=== PATIENT | male | born 1950 | race Caucasian/White ===

== ENCOUNTER 2016-08-03 10:36 | Inpatient (IN) | payer OTHER, MEDICAID ==
[~2016-08-03] VITALS: Ht 167.6 cm; Wt 68.0 kg
--- NOTE | 2016-08-03 10:36 | NUR ---
Arrived via [facility] for ALOC since this morning. Patient is symetrically weak and poorly responsive. At baseline he is ambulatory and verbal; now non-verbal and poorly responsive.
--- NOTE | 2016-08-03 10:38 | NUR ---
Dr Winslow at the bedside for evaluation. Currently awaiting new orders.
[2016-08-03] MEDS ORDERED: NACL 0.9% 1,000 ML IV SCH (10:43)
--- NOTE | 2016-08-03 10:45 | NUR ---
Received Pt in bed 1. Pt unable to follow commands and verbalized needs. Pt appears lethargic and sedated. Pt withdraws to painful stimuli.
[2016-08-03 10:46] VITALS: BP 113/60; PULSE 70; RESP 16; TEMP 97.4; O2SAT 99
[2016-08-03 11:31] LABS: BASOPHILS # (AUTO) 0.3 K/uL (0.0-0.2); BASOPHILS % (AUTO) 3.9 % (0.0-2.0); EOSINOPHILS % (AUTO) 0.2 % (0.0-4.0); HEMATOCRIT 41.9 % (36-54); HEMOGLOBIN 13.7 g/dL (14.0-18.0); LYMPHOCYTES # (AUTO) 0.7 K/uL (1.0-5.5); LYMPHOCYTES % (AUTO) 8.1 % (20.5-51.5); MEAN CORPUSCULAR HEMOGLOBIN 32 pg (27-31); MEAN CORPUSCULAR HGB CONC 33 % (32-36); MEAN CORPUSCULAR VOLUME 98 fL (79.0-98.0); MONOCYTES # (AUTO) 0.5 K/uL (0.0-1.0); MONOCYTES % (AUTO) 5.5 % (1.7-9.3); NEUTROPHILS # (AUTO) 7.1 K/uL (1.8-7.7); NEUTROPHILS % (AUTO) 82.3 % (40.0-70.0); PLATELET COUNT (AUTO) 306 K/uL (130-430); RED BLOOD CELL COUNT(AUTO) 4.26 MIL/uL (4.2-6.2); RED CELL DISTRIBUTION WIDTH 13.3 % (9.0-15.0); WHITE BLOOD COUNT (AUTO) 8.6 K/uL (4.8-10.8)
[2016-08-03 11:40] LABS: PROTHROMBIN TIME 10.5 SECS (9.5-12.5)
[2016-08-03 11:42] LABS: CALCIUM 8.6 mg/dL (8.4-11.0); CREATININE 1.17 mg/dL (0.55-1.30); POTASSIUM 4.4 mmol/L (3.5-5.1)
--- NOTE | 2016-08-03 11:44 | NUR ---
TAKEN TO RADIOLOGY VIA [facility]
[2016-08-03 11:48] LABS: ALBUMIN 3.5 g/dL (3.4-4.8); TOTAL BILIRUBIN 0.4 mg/dL (0.0-1.0); TOTAL PROTEIN, SERUM 7.5 g/dL (6.4-8.3)
--- NOTE | 2016-08-03 11:55 | NUR ---
Pt back from CT via [facility].
--- NOTE | 2016-08-03 12:10 | NUR ---
SPOKE WITH PTS CAREGIVER AND WAS GIVEN MED REC, MED RECONCILIATION DONE.
[2016-08-03] MEDS ORDERED: SUCR1TAB78 PO (12:23)
[2016-08-03] MEDS ORDERED: DOCU-144 PO (12:23)
[2016-08-03] MEDS ORDERED: DEXL60CA3 PO (12:23)
[2016-08-03] MEDS ORDERED: MULT-1117 PO (12:23)
[2016-08-03] MEDS ORDERED: SERT50TA PO (12:23)
[2016-08-03] MEDS ORDERED: FLUT16SP16 NS (12:23)
[2016-08-03] MEDS ORDERED: TEMA15CA51 PO (12:23)
[2016-08-03] MEDS ORDERED: THOR25 PO (12:23)
[2016-08-03] MEDS ORDERED: LEVO125T8 PO (12:23)
--- NOTE | 2016-08-03 12:59 | NUR ---
NO CHANGES, VSS NO RESP DISTRESS.
[2016-08-03] MEDS ORDERED: NALOXONE HCL 0.4 MG/ML AMP (NARCAN) IVP ONE (13:00)
[2016-08-03 13:01] LABS: BILIRUBIN,URINE NEGATIVE (NEGATIVE); BLOOD, URINE NEGATIVE (NEGATIVE); CLARITY/URINE CLEAR (CLEAR); COLOR,URINE YELLOW (YELLOW); GLUCOSE,URINE NEGATIVE (NEGATIVE); KETONES,URINE NEGATIVE (NEGATIVE); LEUKOCYTE ESTERASE ,URINE NEGATIVE (NEGATIVE); NITRITE, URINE NEGATIVE (NEGATIVE); PROTEIN URINE NEGATIVE (NEGATIVE); UROBILINOGEN,URINE 0.2 (0.2-1.0)
[2016-08-03 13:29] LABS: BARBITURATE, URINE NEGATIVE (NEG <=200); BENZODIAZEPINE, URINE POSITIVE (NEG <=150); CANNABINOID, URINE NEGATIVE (NEG <=50); COCAINE, URINE NEGATIVE (NEG <=150); METHAMPHETAMINES SCREEN,URINE NEGATIVE (NEG <=500); OPIATE, URINE NEGATIVE (NEG <=100); PHENCYCLIDINE SCREEN,URINE NEGATIVE (NEG <=25); UR TRICYCLIC ANTIDEPRESSANTS NEGATIVE (NEG <=300); URINE AMPHETAMINE NEGATIVE (NEG <=500); URINE METHADONE NEGATIVE (NEG <=200); URINE OXYCODONE SCREEN NEGATIVE (NEG <=100); URINE PROPOXYPHENE SCREEN NEGATIVE (NEG <=300)
[2016-08-03] MEDS ORDERED: KETOROLAC TROMETHAMINE 30 MG VIAL IVP ONE (13:30)
--- NOTE | 2016-08-03 14:00 | NUR ---
NO CHANGES, PT ONLY RESPONDING TO PAINFUL STIMULI
--- NOTE | 2016-08-03 14:34 | NUR ---
Patient will be admitted to care of DR HORVATH. Admitted to TELE unit. Will go to room 105-A. Belongings list completed. Summary report printed. Report given to NURSE.
--- NOTE | 2016-08-03 14:48 | NUR ---
ADMISSION NOTE Received patient from ER via gurney. Patient admitted with diagnosis of ALOC. Patient is awake, alert, oriented X 2. Patient oriented to hospital room, call light, toileting, pain management and safety-teach back done. Patient informed that DOMI will be THE nurse and that their room number is 105A. Personal belongings checked and Belongings List documented. Call light within reach.
--- NOTE | 2016-08-03 15:00 | NUR ---
assessment notes rec patient awake but non verbally responsive at this time. hob elevated and no sob noted. ivl on the l hand intact. no infiltration noted. resp easy and unlabored. no acute distress noted. no skin breakdown noted.
[2016-08-03 15:05] VITALS: BP 122/67; PULSE 63; RESP 12; TEMP 97.6; O2SAT 100
[2016-08-03 16:06] VITALS: BP 122/67; PULSE 62; RESP 16; TEMP 97.6; O2SAT 100
--- NOTE | 2016-08-03 16:21 | NUR ---
NEURO CONSULT Spoke with Sera regarding request for consultation with Dr. Santana ([phone]) for reason: altered mental status.
--- NOTE | 2016-08-03 17:00 | NUR ---
rounds dr ortega came and updated re pt's condition. no sob noted. asleep no acute distress noted.
[2016-08-03] MEDS: D5/0.45 NS 1,000 ML IV SCH (17:13)
--- NOTE | 2016-08-03 18:35 | NUR ---
closing notes with hob elevated, no acute distress noted. bed in low position and side rails up and locked. bed alarm is on.
--- NOTE | 2016-08-03 18:40 | NUR ---
SPEECH/LANGUAGE EVAL Left voicemail with Lizett regarding order by Dr. Sandoval for speech/language evaluation. Awaiting call back.
[2016-08-03 20:31] VITALS: BP 125/71; PULSE 68; RESP 18; TEMP 97.5; O2SAT 96
--- NOTE | 2016-08-03 21:35 | NUR ---
Patient resting this hour non verbal Reposition & turning kept clean and dry as needed / .
[2016-08-04] VITALS (7 sets, daily range): BP systolic 120–146; BP diastolic 64–76; PULSE 56–78; RESP 16–20; TEMP 96.4–98.3; O2SAT 93–100
--- NOTE | 2016-08-04 | NUR ---
Hourly Rounding patient awake on and off HOB kept elevated skin dry warm call henao with patient / .
--- NOTE | 2016-08-04 02:46 | NUR ---
Seizure precautions implemented Sx pads applied , no visual seizure activity noted / .
--- NOTE | 2016-08-04 02:47 | NUR ---
Reposition and Turning on schedule kept clean & dry as needed respirations regular also unlabored / .
--- NOTE | 2016-08-04 02:48 | NUR ---
AM Labs also ABG has been ordered from DR HARSHA IRWIN for this patient / .
--- NOTE | 2016-08-04 04:37 | NUR ---
Hourly Rounding patient resting this hour responsive to light touch chest movement shallow also symmetrical unlabored / .
[2016-08-04] MEDS: D5/0.45 NS 1,000 ML IV SCH (05:03)
--- NOTE | 2016-08-04 06:05 | NUR ---
Phoned paged DR HORVATH , to update patient has been Chris @ times 42 - 59 bpm / .
[2016-08-04 07:43] LABS: PHOSPHORUS 3.7 mg/dL (2.7-4.5)
--- NOTE | 2016-08-04 08:00 | NUR ---
AM NOTE Patient is sitting up in bed, no sign of distress or pain, assessment complete, patient is currently on 2L of o2, reoriented patient to room, placed call henao in hand, sitter is currently at bed side, bed in lowest position, three side rails up, bed alarm on, will continue to monitor patient
--- NOTE | 2016-08-04 09:23 | NUR ---
S.T. CLARIFIED W/ NURSE ILAN THAT S.T. REFERRAL IS FOR SWALLOW EVAL. SWALLOW EVAL COMPLETED. PT PRESENTS W/ FUNCTIONAL SWALLOW FOR PUREE AND THIN/THICK LIQUIDS W/ NO S/S OF ASPIRATION REC: PUREE DIET. THIN LIQUIDS OK. NURSE ILAN NOTIFIED. G8996 CI G8997 CI G8998 CI NOMS LEVEL 6
--- NOTE | 2016-08-04 09:24 | NUR ---
ABG DRAWN AT BEDSIDE, PATIENT TOLERATED WELL AT THIS TIME.
[2016-08-04 09:38] LABS: BLOOD GAS PH 7.408 (7.350-7.450)
[2016-08-04 09:39] LABS: ABG TOTAL HEMOGLOBIN 14.2 G/dL (12.0-18.0); BLOOD GAS BASE EXCESS 1.4 mmol/L (-3.0-3.0); BLOOD GAS COHb% 0.9 % (0.5-1.5); BLOOD GAS HHB 2.5 % (0.0-6.0); BLOOD O2Hb% 96.4 % (94.0-97.0)
--- NOTE | 2016-08-04 09:45 | NUR ---
Nutrition Update Avel Scale 15 noted. Pt admitted for altered mental status. Diet: NPO BMI: 24.2 kg/m2 RD to follow per nutrition care standards.
--- NOTE | 2016-08-04 10:09 | NUR ---
Dr. Sandoval Notified Dr. Sandoval that patient passed swallow evaluation and pureed diet with thin liquids was recommended, stated that was okay to order, also notified him that per telehealth coordinator nurse, patient goes bradycardiac when he is sleep, Dr. rhodes consult for Dr. Barrios, will follow up.
--- NOTE | 2016-08-04 10:18 | NUR ---
CARDIO CONSULT Spoke with Hazel regarding request for consultation with Dr. Barrios ([phone]) for reason: bradycardia. Dr. Andre is currently brim ironer hand.
--- NOTE | 2016-08-04 10:20 | NUR ---
RN ROUNDS Patient is sitting up in bed, no signs of distress or pain, sitter is at bedside, bed in lowest position, bed alarm on, three side rails up reoriented patient how to use call henao, call henao in patient's hand, fall precautions in place, will continue to monitor patient.
--- NOTE | 2016-08-04 12:38 | NUR ---
RN ROUNDS PATIENT IS SITTING UP IN BED, NO SIGNS OF DISTRESS OR PAIN, PATIENT'S BED IS IN LOWEST POSITION, BED ALARM ON, SITTER AT BEDSIDE, THREE SIDE RAILS UP, REORIENTED PATIENT TO CALL SANTILLAN SYSTEM, CALL SANTILLAN LEFT IN PATIENT'S HAND, FALL PRECAUTIONS IN PLACE, WILL CONTINUE TO MONITOR PATIENT.
--- NOTE | 2016-08-04 14:50 | NUR ---
RN ROUNDS Patient is sitting up in bed, no signs of distress or discomfort, sitter is at patient's bedside, bed in lowest position, bed alarm on, three side rails up, fall precautions in place, will continue to monitor patient.
--- NOTE | 2016-08-04 16:49 | NUR ---
RN ROUNDS patient shows no signs of distress or discomfort, currently resting in bed, patient is being repositioned, tolerating well, sitter is at bedside, fall precautions in place, will continue to monitor patient
--- NOTE | 2016-08-04 18:08 | NUR ---
PAGED Paged for Dr. Sandoval regarding patient admit status. Awaiting call back.
--- NOTE | 2016-08-04 18:27 | NUR ---
CLOSING NOTES WILL ENDORSE PATIENT TO HOME THEATER EXPERT NURSE, PATIENT IS STABLE, CURRENTLY RESTING IN BED, ALL NEEDS MET, PATIENT'S BED IN THE LOWEST POSITION, BED ALARM ON, SITTER AT BED SIDE, FALL PRECAUTIONS IN PLACE.
--- NOTE | 2016-08-04 18:31 | NUR ---
DR SIMPSON SPOKE WITH DR SIMPSON REGARDING PATIENT DISCHARGE, STATED OK TO DISCHARGE TONIGHT, WILL FOLLOW UP.
--- NOTE | 2016-08-04 18:31 | NUR ---
BOARD AND CARE SPOKE WITH WON (AERIAL ADVERTISER) FROM PATIENT BOARD AND CARE, INFORMED OF DISCHARGE MELISA, STATED SHE WILL CLIENT SERVICE SUPERVISOR PATIENT BETWEEN 9:30-10:00PM, WILL ENDORSE TO NOC SHIFT NURSE.
--- NOTE | 2016-08-04 22:45 | NUR ---
TRANSITION OF CARE: JANE FROM [facility] IS HERE ON THE FLOOR TO [employer] TECHNICIAN PT , SHE STATED SHE IS THE FISH BIN TENDER THERE; SHE STATED PER NEW RULE THEY NEED DOCUMENTS , PACKET MADE , TRANSITION OF CARE EXPLAINED TO JANE , INFORMED HER THAT RESTORIL IS STOPPED HERE , DONT GIVE IT THERE UNLESS HIS DOCTOR IS OK TO START IT AGAIN ; IV CATH REMOVED , TIP IS INTACT , DRESSING APPLIED , NO ACTIVE BLEEDING AT THIS TIME , ID BAND REMOVED AND APPLIED TEMPORARY ID BAND ; TELEMONITOR REMOVED ; PT IS COMFORTABLE ; VITALS ARE STABLE ; PT TALKING TO HIS FISH BIN TENDER ( POOL LOPEZ) PT IS STABLE CONDITION . ALL BELONGING GIVEN TO FISH BIN TENDER . 2250 : TRANSFERRED PT TO WHEELCHAIR WITH ASSIST ; WHEELED PT OUTSIDE ;PT IS COMFORTABLE ; ASSISTED PT TO GET INTO THE [facility] BY CAREGIVER .
== END 2016-08-04 22:52 | disposition home or self-care (01) | DRG 308 ==
LOC: SED 10:36 → SMU 14:25 → OBSVTOIN 14:25 → STU 14:34 → SMU 08-04 07:41 → STU 08-04 07:42
PROVIDERS: ADMIT Family Medicine; ATTEND Family Medicine
DX: I49.8 Other specified cardiac arrhythmias (principal); G93.40 Encephalopathy, unspecified; E03.9 Hypothyroidism, unspecified; F32.9 Major depressive disorder, single episode, unspecified; R13.10 Dysphagia, unspecified; K21.9 Gastro-esophageal reflux disease without esophagitis; K59.09 Other constipation; Q90.9 Down syndrome, unspecified; Z79.899 Other long term (current) drug therapy
CPT/HCPCS: 36415; 36600; 70450-TC; 71010; 80053; 80307; 81003; 82140-TC; 82607; 82803-TC; 83605; 83735-TC; 84100-TC; 84443-TC; 84484; 85025; 85610-TC; 85730-TC; 87040-TC; 92610-GN; 93005; 96361; 96374; 99285; J1885; J2310; J7030

== ENCOUNTER 2018-02-12 10:59 | Emergency (ER) | payer OTHER, MEDICAID ==
[~2018-02-12] VITALS: Ht 167.6 cm; Wt 59.0 kg
[2018-02-12 10:59] VITALS: BP_SYST 127
[~2018-02-12 10:59] MED LIST: DEXL60CA4 PO; DOCU-144 PO; FLUT16SP16 NS; LEVO125T8 PO; MULT-1117 PO; SERT50TA PO; SUCR1TAB78 PO; THOR25 PO
[2018-02-12] MEDS ORDERED: NACL 0.9% 1,000 ML IV ONE (11:15)
[2018-02-12] MEDS ORDERED: IPRATROPIUM/ALBUTEROL SULFATE 3 ML AMPUL.NEB INH ONE ×2 (11:15→13:45)
[2018-02-12] MEDS ORDERED: methylPREDNISolone SOD SUCC/PF 62.5 MG/ML VIAL IVP ONE (11:15)
[2018-02-12 11:46] LABS: BASOPHILS # (AUTO) 0.1 K/uL (0.0-0.2); BASOPHILS % (AUTO) 0.5 % (0.0-2.0); EOSINOPHILS # (AUTO) 0.1 K/uL (0.0-0.4); EOSINOPHILS % (AUTO) 1.1 % (0.0-4.0); HEMOGLOBIN 14.2 g/dL (14.0-18.0); LYMPHOCYTES # (AUTO) 1.1 K/uL (1.0-5.5); LYMPHOCYTES % (AUTO) 10.3 % (20.5-51.5); MEAN CORPUSCULAR HEMOGLOBIN 32 pg (27-31); MEAN CORPUSCULAR HGB CONC 32 % (32-36); MEAN CORPUSCULAR VOLUME 102 fL (79.0-98.0); MONOCYTES # (AUTO) 0.5 K/uL (0.0-1.0); MONOCYTES % (AUTO) 4.3 % (1.7-9.3); NEUTROPHILS # (AUTO) 8.7 K/uL (1.8-7.7); NEUTROPHILS % (AUTO) 83.8 % (40.0-70.0); PLATELET COUNT (AUTO) 342 K/uL (130-430); WHITE BLOOD COUNT (AUTO) 10.5 K/uL (4.8-10.8)
[2018-02-12 11:51] LABS: CALCIUM 8.9 mg/dL (8.4-11.0); CREATININE 0.9 mg/dL (0.55-1.30); POTASSIUM 4.1 mmol/L (3.5-5.1)
[2018-02-12 11:56] LABS: ALBUMIN 3.4 g/dL (3.4-4.8); TOTAL BILIRUBIN 0.4 mg/dL (0.0-1.0)
[2018-02-12 14:38] LABS: BILIRUBIN,URINE NEGATIVE (NEGATIVE); BLOOD, URINE NEGATIVE (NEGATIVE); CLARITY/URINE CLEAR (CLEAR); COLOR,URINE YELLOW (YELLOW); GLUCOSE,URINE NEGATIVE (NEGATIVE); KETONES,URINE NEGATIVE (NEGATIVE); LEUKOCYTE ESTERASE ,URINE NEGATIVE (NEGATIVE); NITRITE, URINE NEGATIVE (NEGATIVE); PH,URINE 5.5 (5.0-8.0); PROTEIN URINE NEGATIVE (NEGATIVE); UROBILINOGEN,URINE 0.2 (0.2-1.0)
[2018-02-12 15:20] VITALS: BP_SYST 122
== END 2018-02-12 15:20 | disposition home or self-care (01) ==
LOC: SED 10:59
DX: J40 Bronchitis, not specified as acute or chronic (principal); K21.9 Gastro-esophageal reflux disease without esophagitis; F32.9 Major depressive disorder, single episode, unspecified; Q90.9 Down syndrome, unspecified
CPT/HCPCS: 36415; 71045; 80053; 81003; 83605; 83880; 84484; 85025; 87040; 93005; 94640; 96374; 99285; J2930; J7030; J7620